=== PATIENT | female | born 1965 | race Two or more races ===

== ENCOUNTER 2022-07-21 10:37 | Emergency (ER) | payer OTHER ==
[~2022-07-21] VITALS: Ht 165.1 cm; Wt 77.1 kg
[2022-07-21] MEDS ORDERED: XANAX XR2 MG PO (11:55)
== END 2022-07-21 16:02 | disposition home or self-care (01) ==
LOC: ER 10:37
DX: M79.606 Pain in leg, unspecified (principal); Z88.8 Allergy status to other drugs, medicaments and biological substances; D01.0 Carcinoma in situ of colon